=== PATIENT | male | born 1945 | race Native Hawaiian/Other Pacific Islander ===

== ENCOUNTER 2019-01-02 10:18 | Emergency (ER) | payer OTHER ==
[~2019-01-02] VITALS: Ht 180.3 cm; Wt 82.1 kg
[2019-01-02 11:20] VITALS: BP 150/58; TEMP 98
== END 2019-01-02 11:21 | disposition home or self-care (01) ==
LOC: ED 10:18
DX: K40.90 Unilateral inguinal hernia, without obstruction or gangrene, not specified as recurrent (principal)
CPT/HCPCS: 99281